=== PATIENT | female | born 1985 | race Caucasian/White ===

== ENCOUNTER → 2017-11-10 10:37 | Outpatient (CLI) | payer OTHER, SELFPAY ==
--- NOTE | 2017-12-10 08:32 | PM.CARDMON.1 ---
[employer]er Report Referral & Results Date Patient Seen: 11/10/17 Requesting provider: Kvng Cuevas Indication: Palpitations Duration of monitoring (days): 5 Diary information: Patient diary contain 6 entries all associated with sinus rhythm Patient triggered events were associated with sinus rhythm and PVCs Data: Minimum heart rate identified was 40 white beats per minute at 05:15 on 11/14/2017 Maximum heart rate identified was 161 beats per minute at 14:08 on 11/14/2017 Less than 1% of identified beats or either supraventricular or ventricular ectopic in origin Impression: This study is essentially normal. Patient did have rare PACs and PVCs. Patient symptoms did not seem to correlate consistently with any specific dysrhythmia
== END ==
DX: R00.2 Palpitations (principal)
CPT/HCPCS: 0296T